=== PATIENT | male | born 1990 | race Two or more races ===

== ENCOUNTER 2021-03-19 11:24 | Day surgery (SDC) | payer BC ==
[2021-03-12 16:33] VITALS: BMI 28.3
[2021-03-19] MEDS ORDERED: BUPIVACAINE HCL 100 ML ONE (12:00)
[2021-03-19] MEDS ORDERED: PROPOFOL 20 ML ONE ×2 (12:37)
[2021-03-19] MEDS ORDERED: MIDAZOLAM HCL 2 MG/2 ML SINGLE DOSE VIAL ONE (12:37)
[2021-03-19] MEDS ORDERED: LIDOCAINE HCL/PF 2% SDV 5ML VIAL ONE (12:43)
[2021-03-19] MEDS ORDERED: SUCCINYLCHOLINE CHLORIDE 200 MG/10 ML SYRINGE ONE (12:52)
[2021-03-19] MEDS ORDERED: DEXAMETHASONE SOD PHOSPHATE 4 MG/1 ML VIAL ONE (13:00)
[2021-03-19] MEDS ORDERED: ONDANSETRON 4 MG/2 ML VIAL ONE (13:00)
[2021-03-19] MEDS ORDERED: ceFAZolin SODIUM 1 GM VIAL ONE (13:01)
[2021-03-19] MEDS ORDERED: ROCURONIUM BROMIDE 50 MG/5 ML SYRINGE ONE (13:02)
[2021-03-19] MEDS ORDERED: SODIUM CHLORIDE 0.9% P/F 10 ML VIAL IJ ONE (13:02)
[2021-03-19] MEDS ORDERED: BUPIVACAINE HCL/PF 0.5% (5MG/ML) 10 ML VIAL IJ ONE ×2 (13:23)
[2021-03-19] MEDS ORDERED: NEOSTIGMINE METHYLSULFATE 0.5 MG/ML - 10 ML MDV ONE (13:28)
[2021-03-19] MEDS ORDERED: GLYCOPYRROLATE 0.2 MG/1 ML VIAL ONE (13:28)
[2021-03-19] MEDS ORDERED: KETOROLAC TROMETHAMINE 30 MG/1 ML VIAL ONE (13:33)
[2021-03-19] MEDS ORDERED: ONDANSETRON 4 MG/2 ML VIAL IVPUSH PRN (13:46)
[2021-03-19] MEDS ORDERED: PROMETHAZINE HCL 25 MG/1 ML VIAL IVPUSH PRN (13:46)
[2021-03-19] MEDS ORDERED: oxyCODONE HCL 5 MG TABLET PO PRN (13:46)
[2021-03-19] MEDS ORDERED: LACTATED RINGERS SOLUTION 1,000 ML IV SCH (14:00)
[2021-03-19 15:03] VITALS: BP 120/70; PULSE 55; TEMP 97.9
== END 2021-03-19 15:04 | disposition home or self-care (01) ==
LOC: FASU 11:24
PROVIDERS: ATTEND Orthopaedic Surgery
PROC: 0RBN4ZZ Excision of Right Wrist Joint, Percutaneous Endoscopic Approach (ICD-10-PCS; 2021-03-19)
PROC: 0MB54ZZ Excision of Right Wrist Bursa and Ligament, Percutaneous Endoscopic Approach (ICD-10-PCS; principal; 2021-03-19 13:15)
DX: S63.591A Other specified sprain of right wrist, initial encounter (principal); X58.XXXA Exposure to other specified factors, initial encounter; Y93.9 Activity, unspecified; Y92.9 Unspecified place or not applicable; M25.631 Stiffness of right wrist, not elsewhere classified; M67.231 Synovial hypertrophy, not elsewhere classified, right forearm; M94.231 Chondromalacia, right wrist; R29.898 Other symptoms and signs involving the musculoskeletal system
CPT/HCPCS: 94760

== ENCOUNTER 2021-12-17 08:11 | Day surgery (SDC) | payer BC ==
[2021-12-11 11:16] VITALS: BMI 28.7
[2021-12-17] MEDS ORDERED: LIDOCAINE HCL 1%, 10 MG/ML (20ML VIAL) ONE (10:04)
[2021-12-17] MEDS ORDERED: MIDAZOLAM HCL 2 MG/2 ML SINGLE DOSE VIAL ONE ×2 (10:09→10:27)
[2021-12-17] MEDS ORDERED: PROMETHAZINE HCL 25 MG/1 ML VIAL IVPUSH PRN (10:18)
[2021-12-17] MEDS ORDERED: ONDANSETRON 4 MG/2 ML VIAL IVPUSH PRN (10:18)
[2021-12-17] MEDS ORDERED: oxyCODONE HCL 5 MG TABLET PO PRN (10:18)
[2021-12-17] MEDS ORDERED: PROPOFOL 20 ML ONE (10:29)
[2021-12-17] MEDS ORDERED: LACTATED RINGERS SOLUTION 1,000 ML IV SCH (10:30)
[2021-12-17 13:33] VITALS: TEMP 97
[2021-12-17 13:42] VITALS: BP 116/70; PULSE 83
== END 2021-12-17 13:41 | disposition home or self-care (01) ==
LOC: FASU 08:11
PROVIDERS: ATTEND Orthopaedic Surgery
PROC: 01N50ZZ Release Median Nerve, Open Approach (ICD-10-PCS; principal; 2021-12-17 10:44)
DX: G56.01 Carpal tunnel syndrome, right upper limb (principal); M21.339 Wrist drop, unspecified wrist; M72.0 Palmar fascial fibromatosis [Dupuytren]; S66.811A Strain of other specified muscles, fascia and tendons at wrist and hand level, right hand, initial encounter; X58.XXXA Exposure to other specified factors, initial encounter; Y93.9 Activity, unspecified; Y92.9 Unspecified place or not applicable
CPT/HCPCS: 94760